=== PATIENT | female | born 1985 | race American Indian/Alaskan Native ===

== ENCOUNTER 2021-08-30 13:11 | Emergency (ER) | payer BC ==
[2021-08-30] MEDS ORDERED: SODIUM CHLORIDE 0.9% 1000 ML 1,000 ML IV ONE (14:24)
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
[2021-08-30 15:18] LABS: Basophils % (Auto) 0.4 % (0.0-1.8); Lymphocytes # (Auto) 0.6 K/mm3 (1.2-5.4); Lymphocytes % (Auto) 8.4 % (13.4-35.0); Mean Corpuscular HGB Conc 29 % (30-34); Mean Corpuscular Volume 72 fl (79-97); Monocytes # (Auto) 0.3 K/mm3 (0.0-0.8); Monocytes % (Auto) 3.7 % (0.0-7.3); Platelet Count 381 K/mm3 (140-440); Red Blood Count 5.19 M/mm3 (3.65-5.03)
[2021-08-30 15:20] LABS: Hematocrit 37.3 % (30.3-42.9); Hemoglobin 10.8 gm/dl (10.1-14.3); Red Cell Distribution Width 22.6 % (13.2-15.2)
[2021-08-30 15:31] LABS: Blood Urea Nitrogen 6 mg/dL (7-17); Calcium 8.8 mg/dL (8.4-10.2); Hemolysis Index 3
--- NOTE | 2021-08-30 15:31 | Cat Scan Report ---
CT head/brain wo con INDICATION: Syncope/HEAD INJURY. TECHNIQUE: Routine CT head. All CT scans at this location are performed using CT dose reduction for A DEYVI by means of automated exposure control. COMPARISON: None. FINDINGS: Intracranial: Mayer-white matter differentiation is maintained. No intracranial hemorrhage. No extra a xial collection. No hydrocephalus. No herniation. Sinuses: Paranasal sinuses and mastoid air cells are essentially clear. Orbits: Globes are intact. Calvarium: No acute fracture. IMPRESSION: 1. No acute intracranial abnormality. Signer Name: Arnie Mejia MD Signed: 08/30/2021 3:27 PM Workstation Name: [id number]
[2021-08-30 15:32] LABS: BUN/Creatinine Ratio 9
[2021-08-30 17:33] VITALS: BP 143/96
== END 2021-08-30 17:32 | disposition home or self-care (01) ==
LOC: ED 13:11
DX: R55 Syncope and collapse (principal)
CPT/HCPCS: 36415; 70450; 80048; 84484; 84703; 85025; 96360; 99284; J7030; Q0162